=== PATIENT | female | born 1965 | race Caucasian/White ===

== ENCOUNTER 2022-12-24 19:52 | Emergency (ER) | payer BC ==
[2022-12-24 20:01] VITALS: TEMP 98.3
--- NOTE | 2022-12-24 20:41 | ED ---
General Adult HPI - General Chief complaint: Fall Stated complaint: Fall/back pain Time Seen by Provider: 12/24/22 20:39 Source: patient Mode of arrival: wheelchair Limitations: no limitations - History of Present Illness Initial comments: Patient presents to the ED stating that she had a mechanical fall while at the [employer] about 5 hours ago and landed on the left side of her low back at that time. Patient states that she has developed left lumbar back pain and left- sided abdominal pain since this fall. Patient describes this pain as "spasms", and she states that the pain is worse with certain changes in position. Patient denies any other injury or site of pain, head injury, LOC, headache, focal numbness/weakness/neuro deficit, neck/upper back/extremity pain, chest pain, dyspnea, palpitations, dizziness, nausea/vomiting/diarrhea, constipation, bloody or melanotic stool, dysuria/hematuria/urinary frequency/urinary symptoms, or any other symptoms or complaints. Patient denies taking any pain medication today. - Related Data Previous Rx's Medication Instructions Recorded methocarbamoL [Robaxin-750] 750 mg PO TID PRN #12 tab 12/24/22 Allergies Allergy/AdvReac Type Severity Reaction Status Date / Time adhesive Allergy Rash/Hives Verified 12/24/22 19:57 Review of Systems ROS Statement: Those systems with pertinent positive or pertinent negative responses have been documented in the HPI. ROS Other: All systems not noted in ROS Statement are negative. Past Medical History Past Medical History: Cancer History of Any Multi-Drug Resistant Organisms: None Reported Past Surgical History: Breast Surgery, Cholecystectomy, Hysterectomy, Orthopedic Surgery Additional Past Surgical History / Comment(s): right foot Past Psychological History: No Psychological Hx Reported Smoking Status: Former smoker Past Alcohol Use History: Daily, Occasional Past Drug Use History: None Reported General Exam Limitations: no limitations General appearance: alert, in no apparent distress Head exam: Present: atraumatic, normocephalic Eye exam: Present: normal appearance, EOMI ENT exam: Present: mucous membranes moist Neck exam: Present: full ROM, other (Trachea is in midline). Absent: tenderness Respiratory exam: Present: normal lung sounds bilaterally. Absent: respiratory distress, wheezes, rales, rhonchi, stridor, chest wall tenderness Cardiovascular Exam: Present: regular rate, normal rhythm, normal heart sounds, other (Normal radial pulses bilaterally) GI/Abdominal exam: Present: soft, other (Mild left upper quadrant abdominal te nderness). Absent: distended, guarding, rebound Extremities exam: Present: full ROM, other (Pelvis is stable and nontender; patient has full range of motion at bilateral hips). Absent: tenderness Back exam: Present: normal inspection, other (Mild left lumbar tenderness; no midline spinal tenderness). Absent: CVA tenderness (R), CVA tenderness (L) Neurological exam: Present: alert, oriented X3. Absent: motor sensory deficit Psychiatric exam: Present: normal affect, normal mood Skin exam: Present: warm, dry, intact, normal color Course Vital Signs 12/24/22 12/24/22 19:57 22:27 Temperature 98.3 F Pulse Rate 89 90 Respiratory 16 18 Rate Blood Pressure 138/84 133/84 O2 Sat by Pulse 97 97 Oximetry - Reevaluation(s) Reevaluation #1: 12/24/22 22:41 Patient denies development of any new pain or symptoms while in the ED. Patient and are aware the patient's test results, and they both feel comfortable with the patient being discharged home at this time. Patient remains alert and breathing comfortably. Patient has no right-sided abdominal tenderness on exam. Patient was counseled about back pain/spasm/contusions and abdominal pain. She was clearly explained return and follow-up instructions. She was instructed to follow up closely with her primary care provider. She feels comfortable with this plan. Medical Decision Making - Medical Decision Making Was pt. sent in by a medical professional or institution (, PA, CERTIFIED SUBSTANCE ABUSE COUNSELOR, urgent care, hospital, or [facility]...) When possible be specific @ -No Did you speak to anyone other than the patient for history (EMS, parent, family, police, friend...)? What history was obtained from this source @ -No Did you review nursing and triage notes (agree or disagree)? Why? @ -I reviewed and agree with nursing and triage notes Were old charts reviewed (outside hosp., previous admission, EMS record, old EKG, old radiological studies, urgent care reports/EKG's, [facility] records)? Report findings @ -No old charts were reviewed Differential Diagnosis (chest pain, altered mental status, abdominal pain women, abdominal pain men, vaginal bleeding, weakness, fever, dyspnea, syncope, headache, dizziness, GI bleed, back pain, seizure, CVA, palpatations, mental health, musculoskeletal)? @ -Fall, contusion, strain, sprain, fracture, renal injury, intra-abdominal injury, abdominal pain, muscle spasm, musculoskeletal EKG interpreted by me (3pts min.). @ -None done X-rays interpreted by me (1pt min.). @ -None done CT interpreted by me (1pt min.). @ -CT abdomen/pelvis with IV contrast was reviewed myself and shows no acute traumatic abnormality. I agree with the radiologist's interpretation as above. U/S interpreted by me (1pt. min.). @ -None done What testing was considered but not performed or refused? (CT, X-rays, U/S, labs)? Why? @ -None What meds were considered but not given or refused? Why? @ -None Did you discuss the management of the patient with other professionals (professionals i.e. , PA, CERTIFIED SUBSTANCE ABUSE COUNSELOR, lab, RT, psych nurse, social services analyst, sawdust machine operator, teacher, audit officer, rn field case manager)? Give summary @ -No Was smoking cessation discussed for >3mins.? @ -No Was critical care preformed (if so, how long)? @ -No Were there social determinants of health that impacted care today? How? (Homelessness, low income, unemployed, alcoholism, drug addiction, transportation, low edu. Level, literacy, decrease access to med. care, care home, rehab)? @ -No Was there de-escalation of care discussed even if they declined (Discuss DNR or withdrawal of care, Hospice)? DNR status @ -No What co-morbidities impacted this encounter? (DM, HTN, Smoking, COPD, CAD, Cancer, CVA, ARF, Chemo, Hep., AIDS, mental health diagnosis, sleep apnea, morbid obesity)? @ -None Was patient admitted / discharged? Hospital course, mention meds given and route, prescriptions, significant lab abnormalities, going to OR and other pertinent info. @ -Patient's pain has improved with ED treatment. Patient has a nonsurgical abdominal exam. Patient is afebrile and without leukocytosis. Patient has no right lower quadrant/McBurney's point tenderness on exam. I do not suspect that the patient's CT finding represents acute appendicitis. Patient has no acute traumatic findings noted on CT. I suspect that the patient's pain is likely due to muscle spasm. Will discharge patient home with her at this time. Patient and feel comfortable with this plan. Undiagnosed new problem with uncertain prognosis? @ -No Drug Therapy requiring intensive monitoring for toxicity (Heparin, Nitro, Insulin, Cardizem)? @ -No Were any procedures done? @ -No Diagnosis/symptom? @ -Fall with back contusion Acute, or Chronic, or Acute on Chronic? @ -Acute Uncomplicated (without systemic symptoms) or Complicated (systemic symptoms)? @ -Uncomplicated Side effects of treatment? @ -No Exacerbation, Progression, or Severe Exacerbation? @ -No Poses a threat to life or bodily function? How? (Chest pain, [place], HI, pneumonia, PE, COPD, DKA, ARF, appy, cholecystitis, CVA, Diverticulitis, Homicidal, Suicidal, threat to staff... and all critical care pts) @ -No Diagnosis/symptom? @ -Abdominal pain and back pain Acute, or Chronic, or Acute on Chronic? @ -Acute Uncomplicated (without systemic symptoms) or Complicated (systemic symptoms)? @ -Uncomplicated Side effects of treatment? @ -none Exacerbation, Progression, or Severe Exacerbation] @ -no Poses a threat to life or bodily function? @ -no - Lab Data Result diagrams: 12/24/22 20:57 12/24/22 20:57 Lab Results 12/24/22 12/24/22 12/24/22 Range/Units 20:57 20:57 21:41 WBC 8.3 (3.8-10.6) k/uL RBC 5.02 (3.80-5.40) m/uL Hgb 15.2 (11.4-16.0) gm/dL Hct 45.0 (34.0-46.0) % MCV 89.5 (80.0-100.0) fL MCH 30.3 (25.0-35.0) pg MCHC 33.9 (31.0-37.0) g/dL RDW 12.7 (11.5-15.5) % Plt Count 347 (150-450) k/uL MPV 8.3 Neutrophils % 63 % Lymphocytes % 27 % Monocytes % 6 % Eosinophils % 2 % Basophils % 1 % Neutrophils # 5.2 (1.3-7.7) k/uL Lymphocytes # 2.2 (1.0-4.8) k/uL Monocytes # 0.5 (0-1.0) k/uL Eosinophils # 0.2 (0-0.7) k/uL Basophils # 0.1 (0-0.2) k/uL Sodium 141 (137-145) mmol/L Potassium 3.8 (3.5-5.1) mmol/L Chloride 105 (98-107) mmol/L Carbon Dioxide 27 (22-30) mmol/L Anion Gap 9 mmol/L BUN 15 (7-17) mg/dL Creatinine 0.58 (0.52-1.04) mg/dL Est GFR (CKD-EPI)AfAm >90 (>60 ml/min/1.73 sqM) Est GFR (CKD-EPI)NonAf >90 (>60 ml/min/1.73 sqM) Glucose 103 H (74-99) mg/dL Calcium 9.6 (8.4-10.2) mg/dL Total Bilirubin 1.0 (0.2-1.3) mg/dL AST 33 (14-36) U/L ALT 38 H (4-34) U/L Alkaline Phosphatase 97 (38-126) U/L Total Protein 7.5 (6.3-8.2) g/dL Albumin 4.3 (3.5-5.0) g/dL Lipase 74 (23-300) U/L Urine Color Light Yellow Urine Appearance Clear (Clear) Urine pH 7.0 (5.0-8.0) Ur Specific [place] 1.015 (1.001-1.035) Urine Protein Negative (Negative) Urine Glucose (UA) Negative (Negative) Urine Ketones Negative (Negative) Urine Blood Negative (Negative) Urine Nitrite Negative (Negative) Urine Bilirubin Negative (Negative) Urine Urobilinogen <2.0 (<2.0) mg/dL Ur Leukocyte Esterase Negative (Negative) - Radiology Data CT abdomen/pelvis with IV contrast: 1. No acute osseous or soft tissue findings correlate with patient's reported symptoms. 2. Dilated fluid-filled appendix without periappendiceal inflammatory changes. Consider short term CT follow-up per the patient's clinical presentation. 3. Hepatic cysts and other incidental findings as detailed above. Disposition Clinical Impression: Fall, Back contusion, Back pain, Abdominal pain Disposition: HOME SELF-CARE Condition: Stable Instructions (If sedation given, give patient instructions): Acute Low Back Pain (ED), Contusion in Adults (ED), Abdominal Pain (ED), Fall Prevention (ED) Additional Instructions: Return to the ER immediately should you develop new or worsening pain or symptoms. Follow up closely with your primary care provider. Prescriptions: methocarbamoL [Robaxin-750] 750 mg PO TID PRN #12 tab PRN Reason: Spasms Is patient prescribed a controlled substance at d/c from ED?: No Referrals: None,Stated [REFERRING] - 1-2 days Abdon Cruz MD [STAFF PHYSICIAN] - 1-2 days Time of Disposition: 22:52
[2022-12-24] MEDS ORDERED: SODIUM CHLORIDE 0.9% 500 ML 500 ML IV ONE (20:48)
[2022-12-24] MEDS ORDERED: HYDROmorphone 0.5 MG/0.5 ML SYRINGE IVP STA (20:48)
--- NOTE | 2022-12-24 21:51 | CT ---
EXAMINATION TYPE: CT abdomen pelvis w con CT DLP: 717.3 mGycm, Automated exposure control for dose reduction was used. DATE OF EXAM: 12/24/2022 9:32 PM COMPARISON: None. CLINICAL INDICATION:Female, 57 years old with history of fall, left back/left abd pain; FALL, Left ab dominal pain TECHNIQUE: Axial CT of the abdomen and pelvis. Sagittal and coronal reformats were created on a [employer] workstation. Contrast used:100 cc mL of Isovue 300 with IV Contrast, Oral contrast used: without Oral Contrast FINDINGS: LOWER CHEST: Bibasilar subsegmental atelectasis. ABDOMEN LIVER: 1.8 cm hepatic cyst in the hepatic dome (series 201, image 8). Additional subcentimeter hypode nsities are seen in the medial left hepatic lobe, statistically hepatic cysts. GALLBLADDER AND BILE DUCTS: The gallbladder is surgically absent. Mild intrahepatic and extrahepatic biliary ductal dilatation, not unexpected in the postcholecystectomy state. PANCREAS: Unremarkable. 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 Spleen is otherwise normal. ADRENAL GLANDS: Unremarkable. KIDNEYS AND URETERS: No evidence of hydronephrosis or renal calculus. The ureters are unremarkable. PELVIS BLADDER: Unremarkable REPRODUCTIVE: Unremarkable. ABDOMEN & PELVIS STOMACH AND BOWEL: Stomach and duodenum are unremarkable. Scattered diverticula are noted throughout the colon. No evidence of bowel obstruction. Dilated fluid-filled appendix with peripheral calcificat ions (series 202, image 47). No periappendiceal fat stranding noted. PERITONEUM: No evidence of pneumoperitoneum or free fluid. No acute inflammatory changes of the right lower quadrant VASCULATURE: Mild calcified atherosclerosis of the abdominal aorta and its branches. MUSCULOSKELETAL: No acute osseous abnormalities LYMPH NODES: No gross evidence for lymphadenopathy. SOFT TISSUE/ABDOMINAL WALL: Unremarkable IMPRESSION: 1. No acute osseous or soft tissue findings correlate with patient's reported symptoms. 2. Dilated fluid-filled appendix without periappendiceal inflammatory changes. Consider short-term CT follow-up per the patient's clinical presentation. 3. Hepatic cysts and other incidental findings as detailed above.
[2022-12-24 21:53] LABS: Appearance,Urine Clear (Clear); Bilirubin,Urine Negative (Negative); Blood,Urine Negative (Negative); Color,Urine Light Yellow; Glucose,Urine (UA) Negative (Negative); Ketones,Urine Negative (Negative); Leukocyte Esterase,Urine Negative (Negative); Nitrite,Urine Negative (Negative); Protein,Urine Negative (Negative); Specific Gravity,Urine 1.015 (1.001-1.035); Urobilinogen,Urine <2.0 mg/dL (<2.0)
[2022-12-24 22:10] LABS: Basophils # (A) 0.1 k/uL (0-0.2); Basophils % (A) 1 %; Eosinophils # (A) 0.2 k/uL (0-0.7); Eosinophils % (A) 2 %; HGB 15.2 gm/dL (11.4-16.0); Lymphocytes # (A) 2.2 k/uL (1.0-4.8); Lymphocytes % (A) 27 %; MCH 30.3 pg (25.0-35.0); MCHC 33.9 g/dL (31.0-37.0); MCV 89.5 fL (80.0-100.0); Mean Platelet Volume 8.3; Monocytes # (A) 0.5 k/uL (0-1.0); Monocytes % (A) 6 %; Neutrophils # (A) 5.2 k/uL (1.3-7.7); Neutrophils % (A) 63 %; Platelet Count 347 k/uL (150-450); RBC 5.02 m/uL (3.80-5.40); RDW 12.7 % (11.5-15.5); WBC 8.3 k/uL (3.8-10.6)
[2022-12-24 22:16] LABS: ALT 38 U/L (4-34); AST 33 U/L (14-36); African American GFR (CKD) >90 (>60 ml/min/1.73 sqM); Albumin 4.3 g/dL (3.5-5.0); Alkaline Phosphatase 97 U/L (38-126); Anion Gap 9 mmol/L; Blood Urea Nitrogen 15 mg/dL (7-17); Calcium 9.6 mg/dL (8.4-10.2); Carbon Dioxide 27 mmol/L (22-30); Chloride 105 mmol/L (98-107); Glucose 103 mg/dL (74-99); Lipase 74 U/L (23-300); Non-African American GFR(CKD) >90 (>60 ml/min/1.73 sqM); Potassium 3.8 mmol/L (3.5-5.1); Sodium 141 mmol/L (137-145); Total Protein 7.5 g/dL (6.3-8.2)
[2022-12-24 22:28] VITALS: BP 133/84; PULSE 90; RESP 18
[2022-12-24] MEDS ORDERED: methocarbamoL 500 MG TAB PO STA (22:40)
== END 2022-12-24 23:22 | disposition home or self-care (01) ==
LOC: EC 19:52
DX: S30.0XXA Contusion of lower back and pelvis, initial encounter (principal); R10.12 Left upper quadrant pain; Z87.891 Personal history of nicotine dependence; Z90.49 Acquired absence of other specified parts of digestive tract; Z91.09 Other allergy status, other than to drugs and biological substances; W19.XXXA Unspecified fall, initial encounter
CPT/HCPCS: 36415; 80053; 83690; 85025; 81003; 74177; 99284; 96374; J1170; Q9967